=== PATIENT | female | born 1960 | race Caucasian/White ===

== ENCOUNTER → 2020-09-07 | Outpatient (CLI) | payer BC ==
[2020-09-08 14:07] LABS: HPV 16 Negative (Negative); HPV 18 Negative (Negative); HPV OTHER HR TYPES Negative (Negative)
== END | disposition home or self-care (01) ==
LOC: LAB SHORT 16:08 → LAB 16:08
PROVIDERS: Obstetrics & Gynecology
DX: Z01.419 Encounter for gynecological examination (general) (routine) without abnormal findings (principal)
CPT/HCPCS: 87624; G0123

== ENCOUNTER 2021-04-23 06:04 | Day surgery (SDC) | payer BC ==
[~2021-04-23] VITALS: Ht 167.6 cm; Wt 118.7 kg
[~2021-04-23 06:04] MED LIST: NAPR500 PO
--- NOTE | 2021-04-23 16:31 | NUR ---
PATIENT ARRIVED TO THE FLOOR FROM PACU AT 1215 TODAY. PATIENT WAS DROWSY, BUT AWAKENED EASILY. PATIENT CURRENTLY LYING IN BED WITH NO SIGNS OR SYMPTOMS ACUTE DISTRESS. NO COMPLAINTS OF PAIN VOICED. NO COMPLAINTS OF NAUSEA VOICED. QUINTANILLA CATH PATENT DRAINING HAILY COLOR URINE. LAP SITES TO ABDOMEN X 3 ARE CDI. CALL LIGHT AND WATER IN EASY REACH. WILL MONITOR.
--- NOTE | 2021-04-24 03:09 | NUR ---
PT IS ALERT AND ORIENTED X4. QUINTANILLA IN PLACE; YELLOW OUTPUT. SKIN INTACT WITH PX3; GLUE. EARLIER ON THE SHIFT PT STATED NICOTINE PATCH WAS NOT WORKING. SCHEDULE PAIN MEDICATION WAS GIVEN AND PT SLEPT VERY WELL AFTERWORDS. VERY PLEASANT PT.
[2021-04-24 04:42] LABS: BASOPHILS ABSOLUTE AUTO 0.02 K/mm3 (0.00-0.23); BASOPHILS PERCENT AUTO 0 % (0-2); EOSINOPHILS ABSOLUTE AUTO 0.06 K/mm3 (0.00-0.68); EOSINOPHILS PERCENT AUTO 1 % (0-6); Hematocrit 39.3 % (33.0-51.0); Hemoglobin 12.5 g/dL (11.5-16.0); IMMATURE GRAN ABSOLUTE AUTO 0.09 K/mm3 (0.00-0.10); IMMATURE GRAN PERCENT AUTO 1 % (0-1); LYMPHOCYTES ABSOLUTE AUTO 2.07 K/mm3 (0.84-5.20); LYMPHOCYTES PERCENT AUTO 16 % (21-46); MONOCYTES ABSOLUTE AUTO 0.69 K/mm3 (0.16-1.47); MONOCYTES PERCENT AUTO 6 % (4-13); Mean Corpuscular HGB 28.5 pg (26.0-34.0); Mean Corpuscular HGB Conc 31.8 g/dL (31.5-36.5); Mean Corpuscular Volume 90 fL (80-100); Mean Platelet Volume 9.9 fL (9.1-12.4); NEUTROPHILS ABSOLUTE AUTO 9.68 K/mm3 (1.96-9.15); NEUTROPHILS PERCENT AUTO 77 % (41-73); Platelet Count 251 K/mm3 (150-400); RDW Coefficient Variation 13.7 % (11.7-14.2); RDW Standard Deviation 45.5 fL (35.1-46.3); Red Blood Cell Count 4.39 M/mm3 (3.80-5.20); White Blood Cell Count 12.61 K/mm3 (4.00-11.30)
--- NOTE | 2021-04-24 05:29 | NUR ---
PACKING GOT REMOED; PATH WITH SMALL SEROUS SANGUINEOS. QUINTANILLA GOT REMOVED WITH NO COMPLICATIONS. URINE HAILY; 600 ML. PT TOLARATED WELL.
--- NOTE | 2021-04-24 07:31 | NUR ---
ASSUMED CARE: DR TALBOT CALLED AND STATED THAT IF QUINTANILLA WAS REMOVED AND PT VOIDED WITH RESIDUAL BLADDER SCAN LESS THAN 100, PT COULD DISCHARGE AND DID NOT HAVE TO WAIT FOR HER UNLESS SHE WANTED TO. PT STATES SHE HAS SOME SLIGHT VAGINAL BLEEDING, INSTRUCTED PT ON SATURATED PAD BEING WHAT WE WATCH FOR BUT SOME BLEEDING IS NORMAL. PT STATES SHE WILL ALERT DAUGHTER OF DISCHARGE. DENIES NEEDS AT THIS TIME.
[2021-04-24] MEDS ORDERED: OXYC5 PO (08:05)
--- NOTE | 2021-04-24 09:00 | NUR ---
DR GAGNON AT BEDSIDE DISCUSSING DC INSTRUCTIONS WITH PT. VERIFIED THAT SHE WANTS PT TO HAVE ABX. FAXED ORDER TO [facility]. IV DC'D WNL. ESCORTED OUT VIA WHEEL CHAIR BY HOSPITAL STAFF. DENIED QUESTIONS OR CONCERNS.
== END 2021-04-24 08:57 | disposition home or self-care (01) ==
LOC: ORSCMMR 06:04 → SURS 12:23 → ORSCMMR 04-24 08:57 → SURS 04-24 08:57
PROVIDERS: Obstetrics & Gynecology
PROC: 0UQF7ZZ Repair Cul-de-sac, Via Natural or Artificial Opening (ICD-10-PCS; principal; 2021-04-23 07:30)
PROC: 0UT7FZZ Resection of Bilateral Fallopian Tubes, Via Natural or Artificial Opening With Percutaneous Endoscopic Assistance (ICD-10-PCS; principal; 2021-04-23 07:30)
PROC: 0JQC0ZZ Repair Pelvic Region Subcutaneous Tissue and Fascia, Open Approach (ICD-10-PCS; principal; 2021-04-23 07:30)
PROC: 0UT2FZZ Resection of Bilateral Ovaries, Via Natural or Artificial Opening With Percutaneous Endoscopic Assistance (ICD-10-PCS; principal; 2021-04-23 07:30)
PROC: 0UT9FZZ Resection of Uterus, Via Natural or Artificial Opening With Percutaneous Endoscopic Assistance (ICD-10-PCS; principal; 2021-04-23 07:30)
DX: N81.9 Female genital prolapse, unspecified (principal); D25.9 Leiomyoma of uterus, unspecified; N83.292 Other ovarian cyst, left side; N83.291 Other ovarian cyst, right side; N81.10 Cystocele, unspecified; N81.5 Vaginal enterocele; E11.9 Type 2 diabetes mellitus without complications; E66.01 Morbid (severe) obesity due to excess calories; Z68.41 Body mass index [BMI] 40.0-44.9, adult; F31.9 Bipolar disorder, unspecified; F43.10 Post-traumatic stress disorder, unspecified; F17.210 Nicotine dependence, cigarettes, uncomplicated; Z79.84 Long term (current) use of oral hypoglycemic drugs; K21.9 Gastro-esophageal reflux disease without esophagitis; Z79.899 Other long term (current) drug therapy
CPT/HCPCS: 36415; 82947; 85025; 86850; 86900; 86901; 88307; A9270; J0171; J0690; J1100; J1885; J2270; J2405; J2704; J3010; J7120